=== PATIENT | female | born 1995 | race Two or more races ===

== ENCOUNTER 2025-03-29 14:18 | Emergency (ER) | payer MEDICAID, SELFPAY ==
[2025-03-29 14:19] VITALS: BMI 34.9
[2025-03-29 14:36] VITALS: BP 130/86; PULSE 113; RESP 20; TEMP 37; O2SAT 97
--- NOTE | 2025-03-29 14:51 | XR_ITS ---
Examination: CT abdomen and pelvis without contrast. Coronal 3-D reconstructions. Sagittal 2-D reconstructions. Date and time of exam:March 29, 2025, 1559 hrs. Indications: Onset right-sided flank pain with nausea today. CTDI: vol (mGy): 14.4. DLP: (mGycm): 815. Technique: Axial images of the abdomen have been obtained, 3 mm slice thickness Intravenous contrast material has not been administered. Low dose protocols were performed. One or more of the following dose reduction techniques were used; automated exposure control, adjustment of the mA and/or KV according to patient size, use of iterative reconstruction technique. Findings: No focal liver or splenic lesion No gallstones No pancreatic or adrenal mass. No renal or ureteral calculi, no hydronephrosis Normal appendix No bowel obstruction No bladder mass or bladder calculi Osseous structures are intact Impression: No renal or ureteral calculi, no hydronephrosis Normal appendix No bladder mass or bladder calculi.
--- NOTE | 2025-03-29 15:05 | EDNOTE_ITS ---
ED Abdominal Pain RME/HPI General Chief Complaint: Abdominal Pain Stated complaint: FARHAD FLANK PAIN RADIATING TO ABD WITH N/V/D Time seen by provider: 03/29/25 15:06 Arrival date/time: 03/29/25 14:18 29-year-old female with no known medical history presents to the emergency room with a chief complaint of epigastric abdominal pain nausea vomiting and diarrhea x 3 days Source: patient Mode of arrival: ambulatory Limitations: no limitations Related Data Previous Rx's ?Medication ?Instructions ?Recorded docusate sodium 100 mg capsule 100 mg PO BID #40 caps 05/06/22 (Colace) hydrocodone 5 mg-acetaminophen 325 1 tab PO Q6H PRN pa in (scale score 05/06/22 mg tablet 7-10) #20 tabs ibuprofen 600 mg tablet 600 mg PO Q8H PRN pain (scal e 05/06/22 score 4-6) #15 tabs hydrocodone 5 mg-acetaminophen 325 1 tab PO BID PRN pa in #6 tabs 03/29/25 mg tablet ondansetron 4 mg disintegrating 4 mg PO Q8H PRN nausea and 03/29/25 tablet vomiting #14 tabs Allergies Allergy/AdvReac Type Severity Reaction Status Date / Time sulfamethoxazole Allergy Mild RASH Verified 03/29/25 14:21 trimethoprim Allergy Mild RASH Verified 03/29/25 14:21 Mosquito Allergy Mild SWELLING Uncoded 08/10/23 22:27 Review of Systems Review of Systems Systems Reviewed: All systems reviewed, normal except as documented Constitutional Constitutional: Reports system reviewed and no additional complaints, except as documented, Denies fatigue, Denies fever(s), Denies headache(s) and Denies weakness Eyes Eyes: Reports system reviewed and no additional complaints, except as documented, Denies blurry vision and Denies change in vision ENT Ears, Nose, Mouth, and Throat: Reports system reviewed and no additional complaints, except as documented, Denies otalgia, Denies headache(s), Denies nasal congestion, Denies throat swelling and Denies vertigo Cardiovascular Cardiovascular: Reports system reviewed and no additional complaints, except as documented, Denies chest pain, Denies dyspnea and Denies dyspnea on exertion Respiratory Respiratory: Reports system reviewed and no additional complaints, except as documented, Denies chest congestion, Denies cough, Denies dyspnea, Denies dyspnea on exertion and Denies wheezing Gastrointestinal Gastrointestinal: Reports system reviewed and no additional complaints, except as documented, Reports abdominal pain, Reports cramping, Reports diarrhea, Denies nausea and Reports vomiting Genitourinary Genitourinary: Reports system reviewed and no additional complaints, except as documented Musculoskeletal Musculoskeletal: Reports system reviewed and no additional complaints, except as documented and Denies back pain Integumentary/Breasts Skin/Breast: Reports system reviewed and no additional complaints, except as documented and Denies wounds Neurologic Neurologic: Reports system reviewed and no additional complaints, except as documented, Denies confusion, Denies headache(s), Denies lack of coordination, Denies vertigo and Denies weakness Psychiatric Psychiatric: Reports system reviewed and no additional complaints, except as documented, Denies anxiety, Denies confusion, Denies depression, Denies paranoia, Denies suicidal ideation and Denies tactile hallucinations Endocrine Endocrine: Reports system reviewed and no additional complaints, except as documented and Denies fatigue Hematologic/Lymphatic Hematologic/Lymphatic: Reports system reviewed and no additional complaints, except as documented and Denies lymphadenopathy Allergic/Immunologic Allergic/Immunologic: Reports system reviewed and no additional complaints, except as documented, Denies throat swelling, Denies urticaria and Denies wheezing ED Exam General Limitations: Present no limitations General appearance: Present alert and in no apparent distress Head Head exam: Present atraumatic Eye Eye exam: Present normal appearance, PERRL and EOMI ENT ENT exam: Present normal exam, normal oropharynx and mucous membranes moist Neck Neck exam: Present normal inspection, full ROM and trachea midline Chest Chest inspection: Present normal inspection and symmetric chest wall rise Respiratory Respiratory exam: Present normal lung sounds bilaterally Cardiovascular Cardiovascular exam: Present regular rate, normal rhythm and normal heart sounds Abdominal Exam Abdominal exam: Present soft and normal bowel sounds; Absent distention, tenderness, guarding, rebound or rigidity Extremities Exam Extremities exam: Present normal inspection and full ROM Back Exam Back exam: Present normal inspection and full ROM Neurological Exam Neurological exam: Present alert, oriented X3 and CN II-XII intact Psychiatric Psychiatric exam: Present normal affect and normal mood Skin Skin exam: Present warm, dry, intact and normal color Course Quality Measures none Orders Category Date Time Status CT abdomen pelvis wo con Stat Exams 03/29/25 14:51 Completed CBC Stat Lab 03/29/25 16:07 Completed CMP [Comprehensive Metabolic Panel] Stat Lab 03/29/25 16:07 Completed HCG Qualitative,Urine Stat Lab 03/29/25 15:18 Completed Lipase Stat Lab 03/29/25 16:07 Completed UA [Urinalysis] Stat Lab 03/29/25 15:18 Completed Urine Culture Stat Lab 03/29/25 15:18 Completed HYDROcodone*/APAP 5/325 [[place] 5/325] Med 03/29/25 16:11 Discontinued 1 tab PO X1 ONE Ondansetron Odt [Zofran Odt] Med 03/29/25 14:51 Discontinued 4 mg PO X1 ONE Vital Signs Vital signs: Vital Signs Temperature 98.6 F 03/29/25 14:36 Pulse Rate 113 H 03/29/25 14:36 Respiratory Rate 20 03/29/25 14:36 Blood Pressure 130/86 H 03/29/25 14:36 Pulse Oximetry (%) 97 03/29/25 14:36 Oxygen Delivery Method Room Air 03/29/25 14:36 Abdominal Pain MDM MDM Narrative MDM Narrative:: 29-year-old female with no known medical history presents to the emergency room with a chief complaint of epigastric abdominal pain nausea vomiting and diarrhea x 3 days Patient is hemodynamically stable. She is afebrile not tachypneic O2 saturation is 97% on room air. The patient is actively vomiting and her pulse was at 113 Physical examination shows tenderness diffusely throughout her abdomen. There is a negative Mena sign. CT of the abdomen and pelvis was completed and was negative for any acute findings. CBC CMP and urinalysis were all within normal limits. There is mild leukocytosis. Patient was given Zofran with improvement to her symptoms Patient was discharged and educated to follow-up with primary care provider in the next 24 to 48 hours and return to the emergency room for any evidence of worsening signs or symptoms Patient data External records reviewed:: [facility] previous records Clinical information provided by:: patient Social determinants that could affect healthcare access:: none Patient has the following chronic illnesses:: No chronic illness How is presenting disease/condition affected by chronic disease/condition?: no chronic disease Evaluation data The following diagnostics were reviewed and interpreted by me:: lab results and radiology exam(s) Lab and/or radiology exams considered but not ordered:: Labs and radiology exams considered and ordered Interpretation Summary: CT abdomen and pelvis-Findings: No focal liver or splenic lesion No gallstones No pancreatic or adrenal mass. No renal or ureteral calculi, no hydronephrosis Normal appendix No bowel obstruction No bladder mass or bladder calculi Osseous structures are intact Impression: No renal or ureteral calculi, no hydronephrosis Normal appendix No bladder mass or bladder calculi. Medications / Prescriptions Medications or Prescriptions considered but not ordered:: Medication given Medication administrations:: Medication Administration History Discontinued Medications Hydrocodone Bitart/Acetaminophen (Hydrocodone/Apap 5/325 Tablet) 1 tab PO X1 ONE Stop: 03/29/25 16:12 Last Admin: 03/29/25 17:20 Dose: 1 tab Documented By: Ondansetron HCl (Ondansetron Odt 4 Mg Tabrap) 4 mg PO X1 ONE; Protocol Stop: 03/29/25 14:52 Last Admin: 03/29/25 15:17 Dose: 4 mg Documented By: Medication given Consultations Consultation(s) initiated? (list below): No Diagnosis Differential diagnosis abdominal pain: abdominal pain, acute appendicitis, constipation and gastroenteritis Most likely diagnosis given after review of the tests above:: Gastroenteritis Admission Indicated Admission indicated?: not indicated Admission Request Was there a request for admission?: No Disposition Plan Disposition Plan: Discharge Discharge Attestation Discharge Attestation: The patient and all family members were given an opportunity to ask questions and understood the discharge instructions. Discharge instructions specifically effects, indications for sooner follow up or return to the emergency department, and the expected course of current diagnosis. Patient condition: Stable Discharge Plan Plan Patient Disposition: HOME (Self Care) Discharge Disposition comment: Stable Prescriptions/Referrals Prescriptions/Med Rec: New hydrocodone-acetaminophen 5-325 mg tablet 1 tab PO BID MDD 10mg PRN (Reason: pain) Qty: 6 0RF ondansetron 4 mg tablet,disintegrating 4 mg PO Q8H PRN (Reason: nausea and vomiting) Qty: 14 0RF No Action hydrocodone-acetaminophen 5-325 mg tablet 1 tab PO Q6H MDD 4 PRN (Reason: pain (scale score 7-10)) Qty: 20 0RF docusate sodium [Colace] 100 mg capsule 100 mg PO BID Qty: 40 0RF ibuprofen 600 mg tablet 600 mg PO Q8H PRN (Reason: pain (scale score 4-6)) Qty: 15 0RF Referrals: Sulema Dwyer PA-C [Primary Care Provider, Family Practice] - In 1 week Problem List Clinical Impression: Gastroenteritis Patient/Caregiver Discharge Instructions Education Materials: ED Gastroenteritis, Noninfectious Additional Instructions: Please follow-up with your primary care provider in the next [address] of your abdomen and pelvis was negative for any acute findings Your blood work urinalysis were all within normal limits Medication was sent to your pharmacy please pick it up and take it as indicated For any evidence of worsening signs or symptoms return to the emergency room immediately Print Language: Faroese Stand Alone Forms: Domenica Award Info., Patient Portal Info Letter PA/ABSORPTION AND ADSORPTION ENGINEER Supervising Physician PA/ABSORPTION AND ADSORPTION ENGINEER Supervising Physician: Dr. Madison
[2025-03-29] MEDS: ONDANSETRON ODT 4 MG TABRAP PO (15:17)
[2025-03-29 15:28] LABS: Collection Type, Urine Clean Catch; RBC,Urine 0 /hpf (0-3); Squamous Epithelial Cell,Urine 0 /hpf (0-5); WBC,Urine 0 /hpf (0-5)
[2025-03-29 15:38] LABS: HCG Qualitative,Urine Negative
[2025-03-29 15:39] LABS: Bilirubin,Urine Negative (Negative); Blood,Urine Negative (Negative); Clarity,Urine Turbid (Clear/Hazy); Color,Urine Yellow (Lt Yel-Yel); Glucose, Urine Negative (Negative); Ketones,Urine Negative (Negative); Leukocyte Esterase,Urine Positive (Negative); Nitrite,Urine Negative (Negative); PH,Urine 6.5 (5.0-7.0); Protein,Urine 1+ (Neg - Trace); Specific Gravity,Urine 1.039 (1.001-1.035); Urobilinogen,Urine Negative mg/dL (0.0-1.0)
[2025-03-29 16:18] LABS: Basophils # (Auto) 0.0 Thou/mm3 (0.0-0.2); Basophils % (Auto) 0 % (0-2.5); Eosinophils # (Auto) 0.0 Thou/mm3 (0.0-0.5); Eosinophils % (Auto) 0 % (0-10); Hematocrit 43.2 % (36.0-46.0); Hemoglobin 14.3 g/dL (12.0-16.0); Immature Granulocytes Auto 0.04 Thou/mm3 (0.00-0.00); Lymphocytes # (Auto) 0.7 Thou/mm3 (1.0-4.8); Lymphocytes % (Auto) 6 % (10-50); Mean Corpuscular HGB Conc 33.1 g/dl (31.0-37.0); Mean Corpuscular Hemoglobin 28.8 pg (25.0-35.0); Mean Corpuscular Volume 87 fL (80-100); Monocytes # (Auto) 0.7 Thou/mm3 (0.0-0.8); Monocytes % (Auto) 6 % (0-12); Neutrophils # (Auto) 10.4 Thou/mm3 (1.8-7.7); Neutrophils % (Auto) 88 % (37-80); Nucleated Red Blood Cell # 0.00 Thou/mm3 (0.00-0.00); Nucleated Red Blood Cell % 0 /100 WBC (0); Platelet Count 291 Thou/mm3 (140-440); RDW Standard Deviation 40.2 fL (36.4-46.3); Red Blood Count 4.96 Miln/mm3 (4.00-5.20); White Blood Count 11.8 Thou/mm3 (3.6-11.0)
[2025-03-29 16:58] LABS: Alanine Aminotransferase 15 U/L (10-49); Albumin, Serum 4.8 gm/dL (3.5-5.0); Albumin/Globulin Ratio 1.7 (1.2-2.2); Alkaline Phosphatase 125 U/L (46-116); Anion Gap 13 (7-16); Aspartate Amino Transferase 15 U/L (0-34); BUN/Creatinine Ratio 16 Ratio (12-20); Bilirubin,Total 0.8 mg/dL (0.3-1.2); Blood Urea Nitrogen 11 mg/dL (9-23); Calcium 10.2 mg/dL (8.3-10.6); Calcium (Corrected) 10.2 mg/dL (8.5-10.1); Carbon Dioxide 25.3 mMol/L (20.0-31.0); Chloride 104 mMol/L (98-107); Creatinine (Component) 0.7 mg/dL (0.6-1.3); Estimated Creatinine Clearance 137.8 mL/min (>60); Globulin 2.8 gm/dL (2.3-3.5); Glucose 106 mg/dL (74-106); Lipase 23 U/L (12-53); Osmolality,Calculated 282 (275-295); Potassium 3.7 mMol/L (3.4-5.1); Sodium 142 mMol/L (136-145); Total Protein 7.6 gm/dL (5.7-8.2); eGFR > 60 See Note
[2025-03-29] MEDS: HYDROcodone/APAP 5/325 TABLET 1 TAB PO (17:20)
== END 2025-03-29 17:26 | disposition home or self-care (01) ==
PROVIDERS: Nurse Practitioner Family; Emergency Provider Family Medicine; PCP Physician Assistant
DX: K52.9 Noninfective gastroenteritis and colitis, unspecified (principal); Z88.2 Allergy status to sulfonamides
CPT/HCPCS: 36415; 74176; 80053; 81001; 81025; 83690; 85025; 87077; 87086; 87186; 99283; Q0162; A9270

== ENCOUNTER 2025-06-06 19:36 | Emergency (ER) | payer BC, SELFPAY ==
[2025-06-06 19:36] VITALS: BMI 26.8
[2025-06-06 19:50] VITALS: BP 119/87; PULSE 118; RESP 18; TEMP 38.3; O2SAT 98
--- NOTE | 2025-06-06 19:57 | XR_ITS ---
EXAMINATION: PA chest single view TECHNIQUE: Upright PA chest single view Date and time: June 06, 2025, 2023 hours INDICATIONS: Fever chest pain sore throat beginning 4 days ago. FINDINGS: Suspicious for early bibasilar pneumonia Normal heart size Osseous structures are intact IMPRESSION: Suspicious for early bibasilar pneumonia
--- NOTE | 2025-06-06 20:00 | PD.EDFEVER ---
ED Fever RME/HPI General Chief Complaint: Fever Stated Complaint: FEVER, CHILLS, SORE THROAT Time Seen by Provider: 06/06/25 19:54 Arrival date/time: 06/06/25 19:36 RME / HPI RME / HPI Narrative: CC: Fever Patient is a 22-year-old female with a past medical history of cholecystectomy (2021) who presented to the emergency room via private vehicle with a chief complaint of fevers at home ranging from 102-101 Fahrenheit. Patient stated she followed up with primary doctor on Tuesday after she started complaining of chills, sore throat and fevers. Patient was prescribed amoxicillin on 06/03/2025 with little clinical improvement. Decreased appetite. Denied dysuria or increased frequency flu covid chest xray and rapid strep Related Data Previous Rx's ?Medication ?Instructions ?Recorded docusate sodium 100 mg capsule 100 mg PO BID #40 caps 05/06/22 (Colace) ibuprofen 600 mg tablet 600 mg PO Q8H PRN pain (scale 05/06/22 score 4-6) #15 tabs ondansetron 4 mg disintegrating 4 mg PO Q8H PRN nausea and 03/29/25 tablet vomiting #14 tabs azithromycin 250 mg tablet See Rx Instructions PO .COMPLEX #6 06/06/25 (Zithromax Z-Prosper) tabs cefdinir 300 mg capsule 300 mg PO BID Pneumonia & 06/06/25 Tonsillitis 5 days #10 caps Allergies Allergy/AdvReac Type Severity Reaction Status Date / Time sulfamethoxazole Allergy Mild RASH Verified 06/06/25 19:39 trimethoprim Allergy Mild RASH Verified 06/06/25 19:39 Mosquito Allergy Mild SWELLING Uncoded 06/06/25 19:39 Review of Systems Review of Systems Narrative Review of Systems: General appearance: NO weight change, Yes fatigue, NO weakness, Yes fever, Yes chills, NO night sweats, Yes cough Skin: NO rash, NO itching, NO sores, NO moles HEENT: NO Trauma, NO nausea, NO vomiting, NO visual changes, NO blurry vision, NO double vision, NO tinnitus, NO vertigo, NO ear discharge, NO rhinorrhea, NO stuffiness, NO sneezing, NO allergy, NO epistaxis. NO Hoarseness, NO sore throat, NO swollen neck. Cardiac: NO Palpitations, NO dyspnea on exertion, NO orthopnea, NO paroxysmal nocturnal dyspnea, NO edema Respiratory: NO Shortness of Breath, NO Wheezing, NO Cough, NO Sputum, NO hemoptysis GI:NO appetite, NO nausea, NO vomiting, NO dysphagia, NO changes in bowel frequency, NO stool color, NO diarrhea, NO constipation, NO hemetemesis, NO hemorrhoids, NO melena, NO hematechezia, NO abdominal pain, NO jaundice Renal: NO frequency, NO hesitancy, NO urgency, NO hematuria, NO nocturia, NO incontinence MSK: NO muscle weakness, NO gout, NO arthritis, NO muscle stiffness Neuro: NO headaches, NO tremors, NO weakness, NO paralysis, NO seizures, NO loss of consciousness, NO numbness. Hem: NO anemia, NO easy bruising/bleeding, NO petechiae, NO purpura Endo: NO heat/cold intolerance, NO excessive sweating, NO polyuria, NO polydipsia, NO polyphagia, NO thyroid problems, NO diabetes Pysch: NO mood, NO anxiety, NO depression Physical Exam Narrative Physical exam: General Appearance: Alert & Oriented X3, well-nourished female who is lying in bed in no acute distress with productive cough HEENT: Skull symmetrical and atraumatic. Conjunctivae pink and moist. Pupils equal, round, reactive to light and accommodation (PERRL). External ear without lesion or discharge. Straight, nares patient, mucosa pink, no discharge. No nodules noted on cervical, occipital or submental. erythematous right oral pharyngeal Cardio: Normal Rate and Rhythm with S1 and S2 heart sounds. No murmurs or extra heart sounds auscultated. No bruits on carotid auscultation. No peripheral edema or cyanosis. Lungs: Symmetric with good expansion. Chest and back non-tender. Breath sounds vesicular with mild rhonchi. Abdomen: Non-tender, Non-distended, Normal Reactive Bowel Sounds Neuro: Alert, cooperative, oriented to person, place, and time. Speech clear. CN grossly intact. Upper motor strength 5/5 and Lower motor strength 5/5. Sensation intact. Course Quality Measures none Orders Category Date Time Status Bedside COVID-19 Antigen Test NOW Care 06/06/25 19:57 Active XR chest 1V portable Stat Exams 06/06/25 19:57 Completed FLU A&B [Influenza A & B Rapid Panel] Stat Lab 06/06/25 10:25 Completed Strep A Rapid Stat Lab 06/06/25 10:25 Completed Acetaminophen Tab [Tylenol Tab] Med 06/06/25 20:28 Discontinued 650 mg PO X1 ONE Ibuprofen Tab [Motrin Tab] Med 06/06/25 19:57 Discontinued 400 mg PO X1 ONE predniSONE Med 06/06/25 20:28 Discontinued 40 mg PO X1 ONE Vital Signs Vital signs: Vital Signs Temperature 101 F H 06/06/25 19:50 Pulse Rate 118 H 06/06/25 19:50 Respiratory Rate 18 06/06/25 19:50 Blood Pressure 119/87 H 06/06/25 19:50 Pulse Oximetry (%) 98 06/06/25 19:50 Oxygen Delivery Method Room Air 06/06/25 19:50 Fever Patient data External records reviewed:: [facility] previous records Clinical information provided by:: patient Social determinants that could affect healthcare access:: none Patient has the following chronic illnesses:: None How is presenting disease/condition affected by chronic disease/condition?: no chronic disease Evaluation data The following diagnostics were reviewed and interpreted by me:: lab results (flu and covid ) and radiology exam(s) (chest x-ray ) Lab and/or radiology exams considered but not ordered:: None Interpretation Summary: Patient is a 30 year old female with chief complain of chills, fevers, and fatigue w/ productive cough likely secondary to viral infection, out of window for Tamiflu. Flu A/B and COVID negative. Chest x-ray noted to be showing pneumonia. Physical exam noted to have tonsillitis. #Pneumonia #Tonsillitis - The patient's plan was discussed with attending Dr. Jackeline Rodriguez MD PGY2 Internal Medicine Medications / Prescriptions Medications or Prescriptions considered but not ordered:: none Medication administrations:: Medication Administration History Discontinued Medications Acetaminophen (Acetaminophen 325 Mg Tablet) 650 mg PO X1 ONE Stop: 06/06/25 20:29 Last Admin: 06/06/25 20:47 Dose: 650 mg Documented By: SF Ibuprofen (Ibuprofen Tab 400 Mg Tablet) 400 mg PO X1 ONE Stop: 06/06/25 19:58 Last Admin: 06/06/25 20:03 Dose: 400 mg Documented By: Prednisone (Prednisone 20 Mg Tablet) 40 mg PO X1 ONE Stop: 06/06/25 20:29 Last Admin: 06/06/25 20:47 Dose: 40 mg Documented By: SIMONE same as above Consultations Consultation(s) initiated? (list below): No Diagnosis Fever Differential Diagnosis: community acquired pneumonia, viral infection and influenza Most likely diagnosis given after review of the tests above:: Patient is a 30 year old female with chief complain of chills, fevers, and fatigue w/ productive cough likely secondary to viral infection, out of window for Tamiflu. Flu A/B and COVID negative. Chest x-ray noted to be showing pneumonia. Physical exam noted to have tonsillitis. #Pneumonia #Tonsillitis Admission Indicated Admission indicated?: not indicated Admission Request Was there a request for admission?: No Disposition Plan Disposition Plan: Discharge Discharge Attestation Discharge Attestation: The patient and all family members were given an opportunity to ask questions and understood the discharge instructions. Discharge instructions specifically effects, indications for sooner follow up or return to the emergency department, and the expected course of current diagnosis. Patient condition: Stable Discharge Plan Plan Patient Disposition: HOME (Self Care) Patient condition on transfer: Stable Health Concerns: Instructions: -You have been diagnosed with pneumonia and tonsillitis. -Please complete 5 days of antibiotics with Cefdinir 300 mg twice daily for 5 days for tonsillitis & pneumonia. In addition take azithromycin 500 mg orally for the first day, followed by 250 mg orally for four days to complete antibiotic course. -STOP amoxicillin that was prescribed as outpatient. -Please take Tylenol as needed for fever, please do not exceed more than 4,000 mg in 24 hour period. May alternate every 6 hours with Ibuprofen, please do not exceed 3,000 mg in a 24 hour period -Please follow up with your primary care provider within one week of discharge -If your symptoms worsen,please seek immediate medical attention and return to your nearest emergency room -If you do not have a primary care provider, you may follow up at the [facility] at [address], [place] [address], Prescriptions/Referrals Prescriptions/Med Rec: New cefdinir 300 mg capsule 300 mg PO BID 5 Days Qty: 10 0RF azithromycin [Zithromax Z-Prosper] 250 mg tablet See Rx Instructions .ROUTE .COMPLEX Qty: 6 0RF Rx Instructions: For 250 mg dose pack: take 500 mg today (day 1), then 250 mg for 4 days (days 2-5) Continued docusate sodium [Colace] 100 mg capsule 100 mg PO BID Qty: 40 0RF ibuprofen 600 mg tablet 600 mg PO Q8H PRN (Reason: pain (scale score 4-6)) Qty: 15 0RF ondansetron 4 mg tablet,disintegrating 4 mg PO Q8H PRN (Reason: nausea and vomiting) Qty: 14 0RF Discontinued hydrocodone-acetaminophen 5-325 mg tablet 1 tab PO Q6H MDD 4 PRN (Reason: pain (scale score 7-10)) Qty: 20 0RF hydrocodone-acetaminophen 5-325 mg tablet 1 tab PO BID MDD 10mg PRN (Reason: pain) Qty: 6 0RF Referrals: Sulema Dwyer PA-C [Primary Care Provider, Family Practice] - In 1 week Problem List Clinical Impression: Acute tonsillitis, Pneumonia Patient/Caregiver Discharge Instructions Education Materials: Tonsillitis in Adults, ED Pneumonia (Adult) Print Language: Cymro Stand Alone Forms: Domenica Award Info., Patient Portal Info Letter
[2025-06-06 20:03] VITALS: TEMP 38.3
[2025-06-06] MEDS: IBUPROFEN TAB 400 MG TABLET PO (20:03)
[2025-06-06 20:47] VITALS: TEMP 37.8
[2025-06-06] MEDS: ACETAMINOPHEN 325 MG TABLET 650 MG PO (20:47)
[2025-06-06 20:48] VITALS: TEMP 37.8
[2025-06-06 21:05] LABS: Influenza A Ag Negative; Influenza B Ag Negative; Strep A Rapid Negative (Negative)
[2025-06-06 21:43] VITALS: PULSE 109; RESP 18; TEMP 37.9; O2SAT 97
== END 2025-06-06 21:44 | disposition home or self-care (01) ==
PROVIDERS: Emergency Provider Emergency Medicine; PCP Physician Assistant
DX: J18.9 Pneumonia, unspecified organism (principal); J03.90 Acute tonsillitis, unspecified
CPT/HCPCS: 71045; 87502; 87634; 87635; 87651; 99283; J7512; A9270